=== PATIENT | female | born 1960 | race Caucasian/White ===

== ENCOUNTER → 2020-08-01 | Outpatient (CLI) | payer BC | LOC: LAB SHORT 13:20 → LAB 13:20 | DX: N39.0 Urinary tract infection, site not specified (principal) | CPT/HCPCS: 87077; 87086; 87186 ==

== ENCOUNTER → 2025-10-24 | Outpatient (CLI) | payer SELFPAY ==
[2025-10-24 17:53] LABS: Thyroid Stimulating Hormone 2.37 uIU/mL (0.360-4.800)
[2025-10-24 17:54] LABS: Anion Gap 9.0 mmol/L (3-11); Blood Urea Nitrogen 11.0 mg/dL (8-24); CO2, Blood 25.0 mmol/L (21-32); Calcium, Blood 9.3 mg/dL (8.5-10.1); Chloride, Blood 104.0 mmol/L (98-108); Creatinine, Blood 0.61 mg/dL (0.40-1.00); Glucose, Blood 85.0 mg/dL (70-99); Potassium, Blood 4.2 mmol/L (3.5-5.5); Sodium, Blood 134.0 mmol/L (136-145)
== END | disposition home or self-care (01) ==
LOC: LAB 17:12 → LAB SHORT 17:12
PROVIDERS: Internal Medicine
DX: E03.9 Hypothyroidism, unspecified (principal); E87.1 Hypo-osmolality and hyponatremia; E55.9 Vitamin D deficiency, unspecified; Z79.899 Other long term (current) drug therapy
CPT/HCPCS: 80048; 82306; 83036; 84443